=== PATIENT | male | born 1965 | race Two or more races ===

== ENCOUNTER 2016-10-20 08:15 | Inpatient (IN) | payer MEDICARE, MEDICAID ==
[~2016-10-20] VITALS: Ht 172.7 cm; Wt 58.5 kg
[2016-10-20] MEDS ORDERED: AZITHROMYCIN 500 MG in IV D5W 250 ML IV ONE (08:30)
[2016-10-20] MEDS ORDERED: IV NS 0.9% 1,000 ML BAG IV ONE (08:30)
[2016-10-20] MEDS ORDERED: PIPERACILLIN /TAZOBACTAM 3.375 G in IV D5W 50 ML IV ONE (08:30)
[2016-10-20] MEDS ORDERED: IV NS 0.9% 1,000 ML ONE (08:40)
[2016-10-20] MEDS ORDERED: IV SET PRIMARY PUMP SET 1 EA INFUS.SET MC ONE ×2 (08:41→16:52)
[2016-10-20 08:43] LABS: BASOPHILS % (AUTO) 0.2 % (0.0-2.0); DIFF TOTAL % 100 %; EOSINOPHILS # (AUTO) 0.1 /CMM (0.0-0.7); EOSINOPHILS % (AUTO) 0.5 % (0.0-6.0); HEMATOCRIT 33 % (39-51); HEMOGLOBIN 10.5 g/dL (13.5-17.5); LYMPHOCYTES # (AUTO) 0.8 /CMM (0.8-4.8); LYMPHOCYTES % (AUTO) 7.9 % (20.0-44.0); MEAN CORPUSCULAR HEMOGLOBIN 24 PG (26.0-33.0); MEAN CORPUSCULAR HGB CONC 32 g/dl (31.0-36.0); MEAN CORPUSCULAR VOLUME 75 fL (80-96); MONOCYTES # (AUTO) 0.6 /CMM (0.1-1.30); MONOCYTES % (AUTO) 5.9 % (2.0-12.0); NEUTROPHILS # (AUTO) 8.5 /CMM (1.8-8.9); NEUTROPHILS % (AUTO) 85.5 % (43.0-81.0); PLATELET COUNT (AUTO) 159 /CMM (150-450); RED BLOOD CELL COUNT(AUTO) 4.41 MIL/uL (4.5-6.0); WHITE BLOOD COUNT (AUTO) 9.9 K/uL (4.3-11.0)
[2016-10-20 08:54] LABS: CALCIUM, SERUM 8.5 mg/dL (8.5-10.1); CREATININE 0.5 mg/dL (0.6-1.3)
[2016-10-20 09:01] LABS: LACTIC ACID 0.6 mmol/L (0.4-2.0)
[2016-10-20] MEDS ORDERED: VANCOMYCIN 1 GM in IV D5W 250 ML IV ONE (09:30)
[2016-10-20] MEDS ORDERED: DIGO125T GT (10:36)
[2016-10-20] MEDS ORDERED: OMEP20CA10 PO (10:36)
[2016-10-20] MEDS ORDERED: BETH25TA GT (10:36)
[2016-10-20] MEDS ORDERED: AMIO200T2 GT (10:36)
[2016-10-20] MEDS ORDERED: LEVO500T90 GT (10:36)
[2016-10-20] MEDS ORDERED: CHLO15MO2 MM (10:36)
[2016-10-20] MEDS ORDERED: BENZ0.5T3 GT (10:36)
[2016-10-20] MEDS ORDERED: CARB1TAB21 GT (10:36)
[2016-10-20] MEDS ORDERED: LEVO112T2 GT (10:36)
[2016-10-20] MEDS ORDERED: METO5SOL GT (10:36)
[2016-10-20] MEDS ORDERED: VALP250S14 GT (10:36)
[2016-10-20] MEDS ORDERED: ALBU0.633 IH (10:36)
[2016-10-20] MEDS ORDERED: IV NS 0.9% 1,000 ML IV PRN (15:54)
[2016-10-20] MEDS ORDERED: ONDANSETRON HCL/PF 4 MG/2 ML VIAL IVP PRN (16:00)
[2016-10-20] MEDS ORDERED: ZOLPIDEM TARTRATE 5 MG TABLET GT PRN (16:00)
[2016-10-20] MEDS ORDERED: MAGNESIUM HYDROXIDE 30 ML UDC PO PRN (16:00)
[2016-10-20] MEDS ORDERED: Z GUARD REMEDY 2 OZ OINT TP PRN (16:00)
[2016-10-20] MEDS ORDERED: FEE PK DOSING 1 MIN EA MC ONE (16:39)
[2016-10-20 16:49] VITALS: BP 138/77
[2016-10-20] MEDS: CARBIDOPA/LEVODOPA 25/100 MG 1 UDTAB GT SCH (16:56)
[2016-10-20] MEDS: BENZTROPINE MESYLATE (1 MG) 1 MG TABLET GT SCH (16:56)
[2016-10-20 17:00] VITALS: BP 112/64
[2016-10-20] MEDS ORDERED: SECONDARY IV SET 1 EA INFUS.SET MC ONE ×2 (17:00→21:59)
[2016-10-20] MEDS: METOCLOPRAMIDE HCL 10 MG/10 ML UDC GT SCH ×2 (17:06→23:48)
[2016-10-20] MEDS: BETHANECHOL CHLORIDE (25 MG) 25 MG TABLET GT SCH (17:07)
[2016-10-20] MEDS: PIPERACILLIN /TAZOBACTAM 3.375 G in IV D5W 50 ML IV SCH ×2 (17:48→23:48)
[2016-10-20 18:00] VITALS: BP 111/65
[2016-10-20] MEDS ORDERED: ALBUTEROL HALF STRENGTH 1.25 MG/3 ML VIAL.NEB NEB PRN (19:30)
[2016-10-20 20:00] VITALS: BP 129/69
[2016-10-20] MEDS ORDERED: CHLORHEXIDINE GLUCONATE 15 ML UDC MM SCH (21:00)
[2016-10-20] MEDS: VALPROIC ACID 250 MG/5 ML UDC GT SCH (21:55)
[2016-10-20] MEDS: VANCOMYCIN 0.75 GM in IV D5W 250 ML IV SCH (21:55)
[2016-10-20] MEDS: ENOXAPARIN SODIUM 40 MG/0.4 ML DISP.SYRIN SQ SCH (21:57)
[2016-10-20] MEDS: FIBERSOURCE HN 1,000 ML BOTTLE GT PRN (22:26)
[2016-10-21] MEDS: VANCOMYCIN 0.75 GM in IV D5W 250 ML IV SCH ×3 (03:50→21:44)
[2016-10-21] MEDS ORDERED: IV NS 0.9% 1,000 ML ONE (03:55)
[2016-10-21 04:00] VITALS: BP 100/46
[2016-10-21] MEDS: METOCLOPRAMIDE HCL 10 MG/10 ML UDC GT SCH ×3 (05:32→17:29)
[2016-10-21] MEDS: PIPERACILLIN /TAZOBACTAM 3.375 G in IV D5W 50 ML IV SCH ×3 (05:33→17:29)
[2016-10-21 08:00] VITALS: BP 127/28
[2016-10-21] MEDS ORDERED: HYDROGEL DRESSING 90 GM TUBE TP PRN (09:00)
[2016-10-21] MEDS ORDERED: Medication Not On Formulary EA (Omeprazole 20 MG) PO SCH (09:00)
[2016-10-21 09:04] LABS: BASOPHILS % (AUTO) 0.4 % (0.0-2.0); DIFF TOTAL % 100 %; EOSINOPHILS # (AUTO) 0.1 /CMM (0.0-0.7); EOSINOPHILS % (AUTO) 1.3 % (0.0-6.0); HEMATOCRIT 27 % (39-51); HEMOGLOBIN 8.5 g/dL (13.5-17.5); LYMPHOCYTES # (AUTO) 0.9 /CMM (0.8-4.8); LYMPHOCYTES % (AUTO) 11.7 % (20.0-44.0); MEAN CORPUSCULAR HEMOGLOBIN 25 PG (26.0-33.0); MEAN CORPUSCULAR HGB CONC 31 g/dl (31.0-36.0); MEAN CORPUSCULAR VOLUME 81 fL (80-96); MONOCYTES # (AUTO) 0.2 /CMM (0.1-1.30); MONOCYTES % (AUTO) 2.9 % (2.0-12.0); NEUTROPHILS # (AUTO) 6.5 /CMM (1.8-8.9); NEUTROPHILS % (AUTO) 83.7 % (43.0-81.0); PLATELET COUNT (AUTO) 183 /CMM (150-450); RED BLOOD CELL COUNT(AUTO) 3.35 MIL/uL (4.5-6.0); WHITE BLOOD COUNT (AUTO) 7.8 K/uL (4.3-11.0)
[2016-10-21 09:21] LABS: CALCIUM, SERUM 7.8 mg/dL (8.5-10.1); CREATININE 0.5 mg/dL (0.6-1.3); PHOSPHORUS 4.1 mg/dL (2.5-4.9); POTASSIUM 3.3 mmol/L (3.5-5.1)
[2016-10-21] MEDS: PANTOPRAZOLE 40 MG/PACK PACK GT SCH (09:23)
[2016-10-21] MEDS: BETHANECHOL CHLORIDE (25 MG) 25 MG TABLET GT SCH ×3 (09:23→16:37)
[2016-10-21] MEDS: VALPROIC ACID 250 MG/5 ML UDC GT SCH ×2 (09:23→21:45)
[2016-10-21] MEDS: AMIODARONE HCL 200 MG TABLET GT SCH (09:24)
[2016-10-21] MEDS: BENZTROPINE MESYLATE (1 MG) 1 MG TABLET GT SCH ×3 (09:25→16:38)
[2016-10-21] MEDS: CARBIDOPA/LEVODOPA 25/100 MG 1 UDTAB GT SCH ×3 (09:25→16:37)
[2016-10-21] MEDS: HYDROGEL DRESSING 90 GM TUBE TP SCH (10:50)
[2016-10-21] MEDS: LEVOTHYROXINE SODIUM 112 MCG TABLET GT SCH (10:51)
[2016-10-21 12:00] VITALS: BP 114/41
[2016-10-21] MEDS: DIGOXIN 0.125 MG TABLET GT SCH (12:27)
[2016-10-21] MEDS ORDERED: Potassium Chloride 20 MEQ in IV D5W 1,000 ML IV ONE (13:30)
[2016-10-21] MEDS ORDERED: IV D5W 1,000 ML IV ONE (13:30)
[2016-10-21] MEDS ORDERED: IV SET PRIMARY PUMP SET 1 EA INFUS.SET MC ONE (14:16)
[2016-10-21] MEDS ORDERED: SECONDARY IV SET 1 EA INFUS.SET MC ONE (14:16)
[2016-10-21] MEDS: Magnesium 1GM/D5W 100ML PREMIX 100 ML IV SCH ×2 (14:22→16:36)
[2016-10-21 16:00] VITALS: BP 129/55
[2016-10-21] MEDS: LACTOBACILLUS RHAMNOSUS GG 1 EACH CAP.SPRINK GT SCH (16:38)
[2016-10-21 20:00] VITALS: BP 123/59
[2016-10-21] MEDS: ENOXAPARIN SODIUM 40 MG/0.4 ML DISP.SYRIN SQ SCH (21:46)
[2016-10-22] VITALS (7 sets, daily range): BP systolic 124–170; BP diastolic 54–90
[2016-10-22] MEDS: PIPERACILLIN /TAZOBACTAM 3.375 G in IV D5W 50 ML IV SCH ×5 (00:20→23:36)
[2016-10-22] MEDS: METOCLOPRAMIDE HCL 10 MG/10 ML UDC GT SCH ×5 (00:21→23:36)
[2016-10-22] MEDS: VANCOMYCIN 0.75 GM in IV D5W 250 ML IV SCH ×3 (05:32→21:26)
[2016-10-22 07:56] LABS: CALCIUM, SERUM 8.5 mg/dL (8.5-10.1); CREATININE 0.5 mg/dL (0.6-1.3); POTASSIUM 3.5 mmol/L (3.5-5.1)
[2016-10-22] MEDS: HYDROGEL DRESSING 90 GM TUBE TP SCH (09:00)
[2016-10-22] MEDS: LACTOBACILLUS RHAMNOSUS GG 1 EACH CAP.SPRINK GT SCH ×2 (09:05→17:26)
[2016-10-22] MEDS: VALPROIC ACID 250 MG/5 ML UDC GT SCH ×2 (09:05→21:27)
[2016-10-22] MEDS: AMIODARONE HCL 200 MG TABLET GT SCH (09:07)
[2016-10-22] MEDS: CARBIDOPA/LEVODOPA 25/100 MG 1 UDTAB GT SCH ×3 (09:07→17:26)
[2016-10-22] MEDS: BENZTROPINE MESYLATE (1 MG) 1 MG TABLET GT SCH ×3 (09:07→17:26)
[2016-10-22] MEDS: LEVOTHYROXINE SODIUM 112 MCG TABLET GT SCH (09:08)
[2016-10-22] MEDS: PANTOPRAZOLE 40 MG/PACK PACK GT SCH (09:08)
[2016-10-22] MEDS: BETHANECHOL CHLORIDE (25 MG) 25 MG TABLET GT SCH ×3 (09:16→17:30)
[2016-10-22] MEDS: DIGOXIN 0.125 MG TABLET GT SCH (12:45)
[2016-10-22] MEDS ORDERED: IV NS 0.9% 250 ML IV ONE (14:46)
[2016-10-22] MEDS ORDERED: IV NS 0.9% 250 ML BAG IV SCH ×2 (15:00→15:30)
[2016-10-22] MEDS ORDERED: IV NS 0.9% 250 ML IV PRN (15:30)
[2016-10-22] MEDS: FIBERSOURCE HN 1,000 ML BOTTLE GT PRN (15:35)
[2016-10-22] MEDS: ENOXAPARIN SODIUM 40 MG/0.4 ML DISP.SYRIN SQ SCH (21:37)
[2016-10-23] VITALS (7 sets, daily range): BP systolic 115–150; BP diastolic 53–91
[2016-10-23] MEDS: VANCOMYCIN 0.75 GM in IV D5W 250 ML IV SCH ×3 (04:47→20:24)
[2016-10-23] MEDS: PIPERACILLIN /TAZOBACTAM 3.375 G in IV D5W 50 ML IV SCH ×4 (05:43→23:34)
[2016-10-23] MEDS: METOCLOPRAMIDE HCL 10 MG/10 ML UDC GT SCH ×4 (05:43→23:34)
[2016-10-23] MEDS: LACTOBACILLUS RHAMNOSUS GG 1 EACH CAP.SPRINK GT SCH ×2 (08:03→17:49)
[2016-10-23] MEDS: PANTOPRAZOLE 40 MG/PACK PACK GT SCH (08:03)
[2016-10-23] MEDS: AMIODARONE HCL 200 MG TABLET GT SCH (08:03)
[2016-10-23] MEDS: CARBIDOPA/LEVODOPA 25/100 MG 1 UDTAB GT SCH ×3 (08:03→17:47)
[2016-10-23] MEDS: VALPROIC ACID 250 MG/5 ML UDC GT SCH ×2 (08:03→20:24)
[2016-10-23] MEDS: BENZTROPINE MESYLATE (1 MG) 1 MG TABLET GT SCH ×3 (08:04→17:48)
[2016-10-23] MEDS: BETHANECHOL CHLORIDE (25 MG) 25 MG TABLET GT SCH ×3 (08:04→18:05)
[2016-10-23] MEDS: HYDROGEL DRESSING 90 GM TUBE TP SCH (08:10)
[2016-10-23] MEDS: LEVOTHYROXINE SODIUM 112 MCG TABLET GT SCH (10:20)
[2016-10-23 10:26] LABS: CALCIUM, SERUM 8.5 mg/dL (8.5-10.1); CREATININE 0.5 mg/dL (0.6-1.3); POTASSIUM 3.6 mmol/L (3.5-5.1)
[2016-10-23] MEDS: DIGOXIN 0.125 MG TABLET GT SCH (12:26)
[2016-10-23] MEDS: ENOXAPARIN SODIUM 40 MG/0.4 ML DISP.SYRIN SQ SCH (20:27)
[2016-10-24] VITALS (8 sets, daily range): BP systolic 110–133; BP diastolic 60–68
[2016-10-24] MEDS: VANCOMYCIN 0.75 GM in IV D5W 250 ML IV SCH ×3 (03:47→23:55)
[2016-10-24] MEDS: PIPERACILLIN /TAZOBACTAM 3.375 G in IV D5W 50 ML IV SCH ×3 (05:47→18:36)
[2016-10-24] MEDS: METOCLOPRAMIDE HCL 10 MG/10 ML UDC GT SCH ×3 (05:47→18:36)
[2016-10-24] MEDS: FIBERSOURCE HN 1,000 ML BOTTLE GT PRN (05:47)
[2016-10-24] MEDS: BENZTROPINE MESYLATE (1 MG) 1 MG TABLET GT SCH ×3 (08:54→18:36)
[2016-10-24] MEDS: PANTOPRAZOLE 40 MG/PACK PACK GT SCH (08:54)
[2016-10-24] MEDS: VALPROIC ACID 250 MG/5 ML UDC GT SCH ×2 (08:54→23:58)
[2016-10-24] MEDS: LEVOTHYROXINE SODIUM 112 MCG TABLET GT SCH (08:54)
[2016-10-24] MEDS: CARBIDOPA/LEVODOPA 25/100 MG 1 UDTAB GT SCH ×3 (08:55→18:37)
[2016-10-24] MEDS: LACTOBACILLUS RHAMNOSUS GG 1 EACH CAP.SPRINK GT SCH ×2 (08:55→18:36)
[2016-10-24] MEDS: AMIODARONE HCL 200 MG TABLET GT SCH (08:55)
[2016-10-24] MEDS: BETHANECHOL CHLORIDE (25 MG) 25 MG TABLET GT SCH ×3 (08:55→18:37)
[2016-10-24] MEDS: HYDROGEL DRESSING 90 GM TUBE TP SCH (08:56)
[2016-10-24 09:35] LABS: BASOPHILS % (AUTO) 0.4 % (0.0-2.0); DIFF TOTAL % 100 %; EOSINOPHILS # (AUTO) 0.1 /CMM (0.0-0.7); EOSINOPHILS % (AUTO) 0.8 % (0.0-6.0); HEMATOCRIT 36 % (39-51); HEMOGLOBIN 11.2 g/dL (13.5-17.5); LYMPHOCYTES # (AUTO) 0.6 /CMM (0.8-4.8); LYMPHOCYTES % (AUTO) 7.8 % (20.0-44.0); MEAN CORPUSCULAR HEMOGLOBIN 24 PG (26.0-33.0); MEAN CORPUSCULAR HGB CONC 32 g/dl (31.0-36.0); MEAN CORPUSCULAR VOLUME 75 fL (80-96); MONOCYTES # (AUTO) 0.6 /CMM (0.1-1.30); MONOCYTES % (AUTO) 7.7 % (2.0-12.0); NEUTROPHILS # (AUTO) 6.2 /CMM (1.8-8.9); NEUTROPHILS % (AUTO) 83.3 % (43.0-81.0); PLATELET COUNT (AUTO) 167 /CMM (150-450); RED BLOOD CELL COUNT(AUTO) 4.72 MIL/uL (4.5-6.0); WHITE BLOOD COUNT (AUTO) 7.4 K/uL (4.3-11.0)
[2016-10-24 09:47] LABS: ALBUMIN 2.2 g/dL (3.4-5.0); BILIRUBIN,TOTAL 0.3 mg/dL (0.2-1.0); CALCIUM, SERUM 8.7 mg/dL (8.5-10.1); CREATININE 0.5 mg/dL (0.6-1.3); PHOSPHORUS 3.1 mg/dL (2.5-4.9); POTASSIUM 3.5 mmol/L (3.5-5.1)
[2016-10-24 10:29] LABS: ABG BASE EXCESS 12.6 mmol/L; ABG HCO3 38.2 mmol/L; ABG PCO2 54.8 mmHg (35.0-45.0); ABG PH 7.461 (7.350-7.450); ABG PO2 103.3 mmHg (75.0-100.0); ABG TOTAL HEMOGLOBIN 10.7 G/dL (13.5-18.0); AaDO2 118.9 mmHg; O2Hb 95.4 % (94.0-97.0)
[2016-10-24] MEDS: DIGOXIN 0.125 MG TABLET GT SCH (13:38)
[2016-10-24] MEDS ORDERED: SECONDARY IV SET 1 EA INFUS.SET MC ONE (13:46)
[2016-10-24] MEDS: Magnesium 1GM/D5W 100ML PREMIX 100 ML IV SCH ×2 (15:01→16:04)
[2016-10-24] MEDS: ENOXAPARIN SODIUM 40 MG/0.4 ML DISP.SYRIN SQ SCH (21:00)
[2016-10-25] VITALS (7 sets, daily range): BP systolic 115–140; BP diastolic 55–62
[2016-10-25] MEDS: METOCLOPRAMIDE HCL 10 MG/10 ML UDC GT SCH ×5 (01:29→23:25)
[2016-10-25] MEDS: PIPERACILLIN /TAZOBACTAM 3.375 G in IV D5W 50 ML IV SCH ×5 (01:29→23:24)
[2016-10-25] MEDS: VANCOMYCIN 0.75 GM in IV D5W 250 ML IV SCH ×3 (04:53→21:10)
[2016-10-25 06:59] LABS: BASOPHILS % (AUTO) 0.2 % (0.0-2.0); DIFF TOTAL % 100 %; EOSINOPHILS # (AUTO) 0.1 /CMM (0.0-0.7); EOSINOPHILS % (AUTO) 2.2 % (0.0-6.0); HEMATOCRIT 30 % (39-51); HEMOGLOBIN 9.4 g/dL (13.5-17.5); LYMPHOCYTES # (AUTO) 0.8 /CMM (0.8-4.8); LYMPHOCYTES % (AUTO) 11.2 % (20.0-44.0); MEAN CORPUSCULAR HEMOGLOBIN 24 PG (26.0-33.0); MEAN CORPUSCULAR HGB CONC 31 g/dl (31.0-36.0); MEAN CORPUSCULAR VOLUME 76 fL (80-96); MONOCYTES # (AUTO) 0.6 /CMM (0.1-1.30); MONOCYTES % (AUTO) 8.4 % (2.0-12.0); NEUTROPHILS # (AUTO) 5.3 /CMM (1.8-8.9); PLATELET COUNT (AUTO) 133 /CMM (150-450); RED BLOOD CELL COUNT(AUTO) 3.94 MIL/uL (4.5-6.0); WHITE BLOOD COUNT (AUTO) 6.8 K/uL (4.3-11.0)
[2016-10-25] MEDS ORDERED: SILVER NITRATE APPLICATOR 1 EA BOX TP ONE ×2 (07:30)
[2016-10-25] MEDS ORDERED: LIDOCAINE 1%-EPI 1:100,000 20 ML VIAL IJ ONE (07:30)
[2016-10-25 07:31] LABS: CREATININE 0.5 mg/dL (0.6-1.3); POTASSIUM 3.3 mmol/L (3.5-5.1)
[2016-10-25] MEDS: CARBIDOPA/LEVODOPA 25/100 MG 1 UDTAB GT SCH ×3 (08:16→17:41)
[2016-10-25] MEDS: PANTOPRAZOLE 40 MG/PACK PACK GT SCH (08:16)
[2016-10-25] MEDS: VALPROIC ACID 250 MG/5 ML UDC GT SCH ×2 (08:16→21:35)
[2016-10-25] MEDS: LACTOBACILLUS RHAMNOSUS GG 1 EACH CAP.SPRINK GT SCH ×2 (08:16→17:41)
[2016-10-25] MEDS: BETHANECHOL CHLORIDE (25 MG) 25 MG TABLET GT SCH ×3 (08:16→17:41)
[2016-10-25] MEDS: BENZTROPINE MESYLATE (1 MG) 1 MG TABLET GT SCH ×3 (08:16→17:41)
[2016-10-25] MEDS: LEVOTHYROXINE SODIUM 112 MCG TABLET GT SCH (08:16)
[2016-10-25] MEDS: AMIODARONE HCL 200 MG TABLET GT SCH (08:17)
[2016-10-25] MEDS: HYDROGEL DRESSING 90 GM TUBE TP SCH (08:18)
[2016-10-25] MEDS: DIGOXIN 0.125 MG TABLET GT SCH (12:35)
[2016-10-25] MEDS ORDERED: POTASSIUM CHLORIDE 20 MEQ POWDER PACKET PO ONE (14:00)
[2016-10-25] MEDS ORDERED: POTASSIUM CHLORIDE 20 MEQ TAB.PRT.SR PO ONE ×2 (14:30)
[2016-10-25] MEDS ORDERED: POTASSIUM CHLORIDE 20 MEQ POWDER PACKET GT ONE (15:00)
[2016-10-25] MEDS: FIBERSOURCE HN 1,000 ML BOTTLE GT PRN (19:03)
[2016-10-25] MEDS: ENOXAPARIN SODIUM 40 MG/0.4 ML DISP.SYRIN SQ SCH (21:36)
[2016-10-26] VITALS: BP 121/64
[2016-10-26 04:00] VITALS: BP 124/78
[2016-10-26] MEDS: VANCOMYCIN 0.75 GM in IV D5W 250 ML IV SCH ×2 (05:28→11:33)
[2016-10-26] MEDS: METOCLOPRAMIDE HCL 10 MG/10 ML UDC GT SCH ×3 (05:28→17:18)
[2016-10-26] MEDS: PIPERACILLIN /TAZOBACTAM 3.375 G in IV D5W 50 ML IV SCH ×3 (05:29→17:17)
[2016-10-26 07:45] LABS: CALCIUM, SERUM 8.2 mg/dL (8.5-10.1); CREATININE 0.5 mg/dL (0.6-1.3); DIFF TOTAL % 100 %; EOSINOPHILS # (AUTO) 0.1 /CMM (0.0-0.7); EOSINOPHILS % (AUTO) 1.5 % (0.0-6.0); HEMATOCRIT 31 % (39-51); HEMOGLOBIN 9.8 g/dL (13.5-17.5); LYMPHOCYTES # (AUTO) 1.3 /CMM (0.8-4.8); LYMPHOCYTES % (AUTO) 13.1 % (20.0-44.0); MEAN CORPUSCULAR HEMOGLOBIN 24 PG (26.0-33.0); MEAN CORPUSCULAR HGB CONC 32 g/dl (31.0-36.0); MEAN CORPUSCULAR VOLUME 75 fL (80-96); MONOCYTES # (AUTO) 0.9 /CMM (0.1-1.30); MONOCYTES % (AUTO) 8.9 % (2.0-12.0); NEUTROPHILS # (AUTO) 7.4 /CMM (1.8-8.9); NEUTROPHILS % (AUTO) 76.5 % (43.0-81.0); PHOSPHORUS 2.7 mg/dL (2.5-4.9); PLATELET COUNT (AUTO) 129 /CMM (150-450); POTASSIUM 3.7 mmol/L (3.5-5.1); RED BLOOD CELL COUNT(AUTO) 4.12 MIL/uL (4.5-6.0); WHITE BLOOD COUNT (AUTO) 9.6 K/uL (4.3-11.0)
[2016-10-26 08:00] VITALS: BP 113/54
[2016-10-26] MEDS: PANTOPRAZOLE 40 MG/PACK PACK GT SCH (08:23)
[2016-10-26] MEDS: LEVOTHYROXINE SODIUM 112 MCG TABLET GT SCH (08:23)
[2016-10-26] MEDS: BETHANECHOL CHLORIDE (25 MG) 25 MG TABLET GT SCH ×3 (08:24→17:18)
[2016-10-26] MEDS: CARBIDOPA/LEVODOPA 25/100 MG 1 UDTAB GT SCH ×3 (08:24→17:18)
[2016-10-26] MEDS: BENZTROPINE MESYLATE (1 MG) 1 MG TABLET GT SCH ×3 (08:24→17:19)
[2016-10-26] MEDS: LACTOBACILLUS RHAMNOSUS GG 1 EACH CAP.SPRINK GT SCH ×2 (08:24→17:18)
[2016-10-26] MEDS: VALPROIC ACID 250 MG/5 ML UDC GT SCH ×2 (08:24→20:21)
[2016-10-26] MEDS: HYDROGEL DRESSING 90 GM TUBE TP SCH (08:25)
[2016-10-26] MEDS: AMIODARONE HCL 200 MG TABLET GT SCH (08:26)
[2016-10-26 12:00] VITALS: BP 128/55
[2016-10-26] MEDS: DIGOXIN 0.125 MG TABLET GT SCH (12:08)
[2016-10-26] MEDS: Magnesium 1GM/D5W 100ML PREMIX 100 ML IV SCH ×2 (12:09→13:08)
[2016-10-26 16:00] VITALS: BP 108/56
[2016-10-26] MEDS ORDERED: IV SET PRIMARY PUMP SET 1 EA INFUS.SET MC ONE (18:00)
[2016-10-26 20:00] VITALS: BP 120/49
[2016-10-26] MEDS: ENOXAPARIN SODIUM 40 MG/0.4 ML DISP.SYRIN SQ SCH (20:23)
[2016-10-27] VITALS: BP_SYST 116; BP_SYST 119; BP_DIAS 56; BP_DIAS 69
[2016-10-27] MEDS: METOCLOPRAMIDE HCL 10 MG/10 ML UDC GT SCH ×4 (00:16→17:49)
[2016-10-27] MEDS: PIPERACILLIN /TAZOBACTAM 3.375 G in IV D5W 50 ML IV SCH ×4 (00:17→17:49)
[2016-10-27 04:00] VITALS: BP 121/59
[2016-10-27] MEDS: FIBERSOURCE HN 1,000 ML BOTTLE GT PRN (05:09)
[2016-10-27 06:54] LABS: BASOPHILS % (AUTO) 0.1 % (0.0-2.0); DIFF TOTAL % 100 %; HEMATOCRIT 30 % (39-51); HEMOGLOBIN 9.6 g/dL (13.5-17.5); LYMPHOCYTES # (AUTO) 0.8 /CMM (0.8-4.8); LYMPHOCYTES % (AUTO) 9.9 % (20.0-44.0); MEAN CORPUSCULAR HEMOGLOBIN 24 PG (26.0-33.0); MEAN CORPUSCULAR HGB CONC 32 g/dl (31.0-36.0); MEAN CORPUSCULAR VOLUME 76 fL (80-96); MONOCYTES # (AUTO) 0.7 /CMM (0.1-1.30); MONOCYTES % (AUTO) 8.5 % (2.0-12.0); NEUTROPHILS # (AUTO) 6.6 /CMM (1.8-8.9); NEUTROPHILS % (AUTO) 81.5 % (43.0-81.0); PLATELET COUNT (AUTO) 134 /CMM (150-450); RED BLOOD CELL COUNT(AUTO) 4.01 MIL/uL (4.5-6.0); WHITE BLOOD COUNT (AUTO) 8.1 K/uL (4.3-11.0)
[2016-10-27 07:47] LABS: CALCIUM, SERUM 8.2 mg/dL (8.5-10.1); CREATININE 0.6 mg/dL (0.6-1.3); PHOSPHORUS 2.7 mg/dL (2.5-4.9); POTASSIUM 3.9 mmol/L (3.5-5.1)
[2016-10-27 08:00] VITALS: BP 120/49
[2016-10-27] MEDS: VALPROIC ACID 250 MG/5 ML UDC GT SCH ×2 (09:00→21:27)
[2016-10-27] MEDS: AMIODARONE HCL 200 MG TABLET GT SCH (09:00)
[2016-10-27] MEDS: LEVOTHYROXINE SODIUM 112 MCG TABLET GT SCH (09:00)
[2016-10-27] MEDS: LACTOBACILLUS RHAMNOSUS GG 1 EACH CAP.SPRINK GT SCH ×2 (09:01→17:49)
[2016-10-27] MEDS: BENZTROPINE MESYLATE (1 MG) 1 MG TABLET GT SCH ×3 (09:01→17:49)
[2016-10-27] MEDS: PANTOPRAZOLE 40 MG/PACK PACK GT SCH (09:02)
[2016-10-27] MEDS: BETHANECHOL CHLORIDE (25 MG) 25 MG TABLET GT SCH ×3 (09:02→17:49)
[2016-10-27] MEDS: CARBIDOPA/LEVODOPA 25/100 MG 1 UDTAB GT SCH ×3 (09:02→17:49)
[2016-10-27] MEDS: HYDROGEL DRESSING 90 GM TUBE TP SCH (09:03)
[2016-10-27 12:00] VITALS: BP 118/48
[2016-10-27] MEDS: DIGOXIN 0.125 MG TABLET GT SCH (12:22)
[2016-10-27 16:00] VITALS: BP 121/79
[2016-10-27] MEDS ORDERED: FIBERSOURCE HN 1,000 ML BOTTLE GT PRN (16:31)
[2016-10-27] MEDS ORDERED: IV NS 0.9% 250 ML IV ONE (17:44)
[2016-10-27 20:00] VITALS: BP 120/70
[2016-10-27] MEDS: ENOXAPARIN SODIUM 40 MG/0.4 ML DISP.SYRIN SQ SCH (21:30)
[2016-10-28] VITALS: BP 119/63
[2016-10-28] MEDS: PIPERACILLIN /TAZOBACTAM 3.375 G in IV D5W 50 ML IV SCH ×4 (00:15→17:27)
[2016-10-28] MEDS: METOCLOPRAMIDE HCL 10 MG/10 ML UDC GT SCH ×4 (01:02→17:27)
[2016-10-28 04:00] VITALS: BP 117/62
[2016-10-28] MEDS: LEVOTHYROXINE SODIUM 112 MCG TABLET GT SCH ×2 (07:18→08:34)
[2016-10-28] MEDS: PANTOPRAZOLE 40 MG/PACK PACK GT SCH ×2 (07:19→08:34)
[2016-10-28 08:00] VITALS: BP 114/57
[2016-10-28] MEDS: BENZTROPINE MESYLATE (1 MG) 1 MG TABLET GT SCH ×3 (08:33→17:28)
[2016-10-28] MEDS: BETHANECHOL CHLORIDE (25 MG) 25 MG TABLET GT SCH ×3 (08:33→17:28)
[2016-10-28] MEDS: LACTOBACILLUS RHAMNOSUS GG 1 EACH CAP.SPRINK GT SCH ×2 (08:33→17:28)
[2016-10-28] MEDS: VALPROIC ACID 250 MG/5 ML UDC GT SCH (08:33)
[2016-10-28] MEDS: AMIODARONE HCL 200 MG TABLET GT SCH (08:34)
[2016-10-28] MEDS: CARBIDOPA/LEVODOPA 25/100 MG 1 UDTAB GT SCH ×3 (08:35→17:28)
[2016-10-28] MEDS: HYDROGEL DRESSING 90 GM TUBE TP SCH (08:35)
[2016-10-28] MEDS ORDERED: ASCORBIC ACID 500 MG TABLET GT SCH (09:00)
[2016-10-28] MEDS ORDERED: MULTIVITAMINS,THERAPEUTIC 1 UDTAB TABLET GT SCH (09:00)
[2016-10-28 12:00] VITALS: BP 111/51
[2016-10-28] MEDS: DIGOXIN 0.125 MG TABLET GT SCH (12:44)
[2016-10-28 16:00] VITALS: BP 102/54
[2016-10-28 16:53] LABS: BASOPHILS % (AUTO) 0.3 % (0.0-2.0); DIFF TOTAL % 100 %; EOSINOPHILS # (AUTO) 0.1 /CMM (0.0-0.7); HEMATOCRIT 29 % (39-51); HEMOGLOBIN 9.1 g/dL (13.5-17.5); LYMPHOCYTES % (AUTO) 14.3 % (20.0-44.0); MEAN CORPUSCULAR HEMOGLOBIN 24 PG (26.0-33.0); MEAN CORPUSCULAR HGB CONC 32 g/dl (31.0-36.0); MEAN CORPUSCULAR VOLUME 75 fL (80-96); MONOCYTES # (AUTO) 0.4 /CMM (0.1-1.30); MONOCYTES % (AUTO) 5.8 % (2.0-12.0); NEUTROPHILS # (AUTO) 5.2 /CMM (1.8-8.9); NEUTROPHILS % (AUTO) 77.6 % (43.0-81.0); PLATELET COUNT (AUTO) 120 /CMM (150-450); RED BLOOD CELL COUNT(AUTO) 3.82 MIL/uL (4.5-6.0); WHITE BLOOD COUNT (AUTO) 6.8 K/uL (4.3-11.0)
[2016-10-28 17:05] LABS: CALCIUM, SERUM 8.1 mg/dL (8.5-10.1); CREATININE 0.5 mg/dL (0.6-1.3); PHOSPHORUS 2.3 mg/dL (2.5-4.9); POTASSIUM 4.1 mmol/L (3.5-5.1)
[2016-10-28] MEDS ORDERED: NEUTRA PHOS 1 POWD.PACKET GT ONE (19:00)
[2016-10-28] MEDS ORDERED: MAGNESIUM OXIDE 400 MG TABLET GT ONE (19:00)
== END 2016-10-28 20:29 | DRG 853 ==
LOC: ER 08:17 → ICU 15:47 → TELE-TD 19:04 → TELE1 19:57 → MEDSG1 10-28 09:50
PROVIDERS: ADMIT Internal Medicine; ATTEND Internal Medicine
PROC: 05H533Z Insertion of Infusion Device into Right Subclavian Vein, Percutaneous Approach (ICD-10-PCS; 2016-10-22)
PROC: 0JB80ZZ Excision of Abdomen Subcutaneous Tissue and Fascia, Open Approach (ICD-10-PCS; principal; 2016-10-25)
DX: A41.9 Sepsis, unspecified organism (principal); J96.21 Acute and chronic respiratory failure with hypoxia; N17.0 Acute kidney failure with tubular necrosis; R53.2 Functional quadriplegia; G93.40 Encephalopathy, unspecified; J15.6 Pneumonia due to other Gram-negative bacteria; L03.311 Cellulitis of abdominal wall; E44.0 Moderate protein-calorie malnutrition; E87.0 Hyperosmolality and hypernatremia; Z99.11 Dependence on respirator [ventilator] status; D62 Acute posthemorrhagic anemia; R40.3 Persistent vegetative state; Y83.3 Surgical operation with formation of external stoma as the cause of abnormal reaction of the patient, or of later complication, without mention of misadventure at the time of the procedure; E03.9 Hypothyroidism, unspecified; G40.909 Epilepsy, unspecified, not intractable, without status epilepticus; K21.9 Gastro-esophageal reflux disease without esophagitis; I48.91 Unspecified atrial fibrillation; I10 Essential (primary) hypertension; F02.80 Dementia in other diseases classified elsewhere, unspecified severity, without behavioral disturbance, psychotic disturbance, mood disturbance, and anxiety; D50.9 Iron deficiency anemia, unspecified; D69.6 Thrombocytopenia, unspecified; E83.42 Hypomagnesemia; E87.6 Hypokalemia; G20 Parkinson's disease; I48.0 Paroxysmal atrial fibrillation; E88.09 Other disorders of plasma-protein metabolism, not elsewhere classified; Z93.0 Tracheostomy status; F31.9 Bipolar disorder, unspecified; K94.29 Other complications of gastrostomy; B95.7 Other staphylococcus as the cause of diseases classified elsewhere; R65.20 Severe sepsis without septic shock
CPT/HCPCS: 31720; 36415; 36600; 71010-TC; 71250-TC; 80048-TC; 80053-TC; 80202-TC; 82272-TC; 83605-TC; 83735-TC; 84100-TC; 85025-TC; 86140-TC; 87040-TC; 87070-TC; 87081-TC; 87186-TC; 94003-TC; 94640-TC; 94799-TC; A4606; A6248; A6402; A6403; J0456; J1650; J2543; J3370; J3475; J3480; J3490; J7030; J7050; J7060; J7070; J8597; Z7610

== ENCOUNTER 2016-11-02 19:23 | Inpatient (IN) | payer MEDICARE, MEDICAID ==
[~2016-11-02] VITALS: Ht 182.9 cm; Wt 55.8 kg
[~2016-11-02 19:23] MED LIST: ALBU0.633 IH; AMIO200T2 GT; BENZ0.5T3 GT; BETH25TA GT; CARB1TAB21 GT; CHLO15MO2 MM; DIGO125T GT; LEVO112T2 GT; LEVO500T90 GT; METO5SOL GT; OMEP20CA10 PO; VALP250S14 GT
[2016-11-02] MEDS ORDERED: IV NS 0.9% 1,000 ML BAG IV ONE (20:30)
[2016-11-02 20:45] LABS: BASOPHILS % (AUTO) 0.2 % (0.0-2.0); DIFF TOTAL % 100 %; EOSINOPHILS % (AUTO) 0.2 % (0.0-6.0); HEMATOCRIT 38 % (39-51); HEMOGLOBIN 12.1 g/dL (13.5-17.5); LYMPHOCYTES # (AUTO) 0.3 /CMM (0.8-4.8); MEAN CORPUSCULAR HEMOGLOBIN 24 PG (26.0-33.0); MEAN CORPUSCULAR HGB CONC 32 g/dl (31.0-36.0); MEAN CORPUSCULAR VOLUME 76 fL (80-96); MONOCYTES # (AUTO) 0.7 /CMM (0.1-1.30); MONOCYTES % (AUTO) 6.3 % (2.0-12.0); NEUTROPHILS # (AUTO) 9.4 /CMM (1.8-8.9); NEUTROPHILS % (AUTO) 90.3 % (43.0-81.0); PLATELET COUNT (AUTO) 155 /CMM (150-450); RED BLOOD CELL COUNT(AUTO) 5.07 MIL/uL (4.5-6.0); WHITE BLOOD COUNT (AUTO) 10.4 K/uL (4.3-11.0)
[2016-11-02] MEDS ORDERED: IV NS 0.9% 1,000 ML ONE (21:10)
[2016-11-02] MEDS ORDERED: IV SET PRIMARY 1 EA INFUS.SET MC ONE (21:10)
[2016-11-02 21:13] LABS: TROPONIN I < 0.017 ng/mL (0.00-0.056)
[2016-11-02 21:16] LABS: ALANINE AMINOTRANSFERASE 6 U/L (12-78); ALBUMIN 2.5 g/dL (3.4-5.0); ANION GAP 7 (5-14); ASPARTATE AMINOTRANSFERASE 22 U/L (15-37); BILIRUBIN,DIRECT 0.1 mg/dL (0.0-0.2); BILIRUBIN,TOTAL 0.3 mg/dL (0.2-1.0); CALCIUM, SERUM 9.2 mg/dL (8.5-10.1); CHLORIDE 96 mmol/L (98-107); CREATININE 0.6 mg/dL (0.6-1.3); GFR 141 mL/min (>60); GLUCOSE 93 mg/dL (74-106); INDIRECT BILIRUBIN 0.2 mg/dL (0.0-1.1); POTASSIUM 4.2 mmol/L (3.5-5.1); SODIUM SERUM 139 mmol/L (136-145); UREA NITROGEN, BLOOD 18 mg/dL (7-18)
[2016-11-02 21:26] LABS: CARBON DIOXIDE 40 mmol/L (21-32); INR 1.05 (0.87-1.13); PROTHROMBIN TIME 11.3 SECS (9.5-12.7)
[2016-11-02 21:31] LABS: LACTIC ACID 0.8 mmol/L (0.4-2.0)
[2016-11-02] MEDS ORDERED: LEVOFLOXACIN 750 MG /D5W 150ML 150 ML IV ONE ×2 (21:56→22:00)
[2016-11-02] MEDS ORDERED: IV SET PRIMARY PUMP SET 1 EA INFUS.SET MC ONE (21:56)
[2016-11-02 22:50] VITALS: BP 119/71
[2016-11-02 23:16] VITALS: BP 119/71
[2016-11-03] VITALS: BP 116/64
[2016-11-03 01:07] LABS: KETONES,URINE NEGATIVE (NEGATIVE); LEUKOCYTE ESTERASE ,URINE NEGATIVE (NEGATIVE); PH,URINE 6.5 (5.0-8.0)
[2016-11-03 01:08] LABS: ADD UA MICROSCOPIC YES
[2016-11-03 01:16] LABS: RBC,URINE 81-100 /HPF (0-2)
[2016-11-03 01:17] LABS: ADD URINE CULTURE NO
[2016-11-03] MEDS ORDERED: ONDANSETRON HCL/PF 4 MG/2 ML VIAL IVP PRN (01:30)
[2016-11-03] MEDS ORDERED: Z GUARD REMEDY 2 OZ OINT TP PRN (01:30)
[2016-11-03] MEDS ORDERED: MAG HYDROX/AL HYDROX/SIMETH 30 ML UDC PO PRN (01:30)
[2016-11-03] MEDS ORDERED: IV NS 0.9% 1,000 ML IV ONE (01:30)
[2016-11-03] MEDS ORDERED: MAGNESIUM HYDROXIDE 30 ML UDC PO PRN (01:30)
[2016-11-03] MEDS ORDERED: ENOXAPARIN SODIUM 40 MG/0.4 ML DISP.SYRIN SQ SCH (01:30)
[2016-11-03] MEDS ORDERED: HYDROCODONE/APAP 5/325MG 1 EACH TABLET PO PRN (01:30)
[2016-11-03] MEDS ORDERED: IV SET PRIMARY PUMP SET 1 EA INFUS.SET MC ONE (02:15)
[2016-11-03] MEDS ORDERED: ENOXAPARIN SODIUM 40 MG/0.4 ML DISP.SYRIN SQ ONE (02:15)
[2016-11-03] MEDS ORDERED: IV NS 0.9% 1,000 ML ONE (02:15)
[2016-11-03] MEDS ORDERED: FIBERSOURCE HN 1,000 ML BOTTLE GT SCH (02:30)
[2016-11-03] MEDS ORDERED: METOCLOPRAMIDE HCL 10 MG/10 ML UDC ONE (03:28)
[2016-11-03 04:00] VITALS: BP 122/62
[2016-11-03] MEDS ORDERED: METOCLOPRAMIDE HCL 5 MG/5 ML UDC GT SCH (06:00)
[2016-11-03 08:00] VITALS: BP 115/58
[2016-11-03] MEDS ORDERED: VANCOMYCIN 1 GM in IV D5W 250 ML IV ONE (08:30)
[2016-11-03] MEDS ORDERED: FEE PK DOSING 1 MIN EA MC ONE (08:41)
[2016-11-03] MEDS: LEVOTHYROXINE SODIUM 112 MCG TABLET GT SCH (08:46)
[2016-11-03] MEDS: VALPROIC ACID 250 MG/5 ML UDC GT SCH ×2 (08:46→20:53)
[2016-11-03] MEDS: PIPERACILLIN /TAZOBACTAM 3.375 G in IV D5W 50 ML IV SCH ×4 (08:46→23:35)
[2016-11-03] MEDS: AMIODARONE HCL 200 MG TABLET GT SCH (08:48)
[2016-11-03] MEDS: BENZTROPINE MESYLATE (1 MG) 1 MG TABLET GT SCH ×4 (08:48→16:40)
[2016-11-03] MEDS: CARBIDOPA/LEVODOPA 25/100 MG 1 UDTAB GT SCH ×3 (08:49→16:41)
[2016-11-03] MEDS: PANTOPRAZOLE 40 MG/PACK PACK GT SCH (08:49)
[2016-11-03] MEDS: BETHANECHOL CHLORIDE (25 MG) 25 MG TABLET GT SCH ×3 (08:49→16:41)
[2016-11-03] MEDS ORDERED: SECONDARY IV SET 1 EA INFUS.SET MC ONE (08:53)
[2016-11-03] MEDS ORDERED: CHLORHEXIDINE GLUCONATE 15 ML UDC MM SCH ×2 (09:00)
[2016-11-03] MEDS: HYDROGEL DRESSING 90 GM TUBE TP SCH (10:13)
[2016-11-03] MEDS: METOCLOPRAMIDE HCL 10 MG/10 ML UDC GT SCH ×3 (10:14→20:53)
[2016-11-03 11:15] LABS: CALCIUM, SERUM 8.1 mg/dL (8.5-10.1); CREATININE 0.5 mg/dL (0.6-1.3); POTASSIUM 3.9 mmol/L (3.5-5.1)
[2016-11-03 11:21] LABS: DIFF TOTAL % 100 %; EOSINOPHILS % (AUTO) 0.5 % (0.0-6.0); HEMATOCRIT 27 % (39-51); HEMOGLOBIN 8.4 g/dL (13.5-17.5); LYMPHOCYTES # (AUTO) 0.6 /CMM (0.8-4.8); LYMPHOCYTES % (AUTO) 9.5 % (20.0-44.0); MEAN CORPUSCULAR HEMOGLOBIN 23 PG (26.0-33.0); MEAN CORPUSCULAR HGB CONC 31 g/dl (31.0-36.0); MEAN CORPUSCULAR VOLUME 76 fL (80-96); MONOCYTES # (AUTO) 0.4 /CMM (0.1-1.30); MONOCYTES % (AUTO) 6.7 % (2.0-12.0); NEUTROPHILS # (AUTO) 5.4 /CMM (1.8-8.9); NEUTROPHILS % (AUTO) 83.3 % (43.0-81.0); PLATELET COUNT (AUTO) 147 /CMM (150-450); RED BLOOD CELL COUNT(AUTO) 3.58 MIL/uL (4.5-6.0); WHITE BLOOD COUNT (AUTO) 6.5 K/uL (4.3-11.0)
[2016-11-03 12:00] VITALS: BP 114/58
[2016-11-03] MEDS: DIGOXIN 0.125 MG TABLET GT SCH (12:20)
[2016-11-03] MEDS ORDERED: ALBUTEROL HALF STRENGTH 1.25 MG/3 ML VIAL.NEB NEB PRN (13:30)
[2016-11-03 16:00] VITALS: BP 118/61
[2016-11-03] MEDS: VANCOMYCIN 0.75 GM in IV D5W 250 ML IV SCH ×2 (16:40→23:35)
[2016-11-03 17:17] LABS: ABG BASE EXCESS 13.4 mmol/L; ABG HCO3 38.9 mmol/L; ABG PCO2 54.7 mmHg (35.0-45.0); ABG PO2 75.3 mmHg (75.0-100.0); ABG TOTAL HEMOGLOBIN 10.4 G/dL (13.5-18.0); ALLEN TEST Pass; AaDO2 110.7 mmHg; O2Hb 92.7 % (94.0-97.0)
[2016-11-03 20:00] VITALS: BP 110/51
[2016-11-03] MEDS: ACETAMINOPHEN 325 MG TABLET PO PRN (20:02)
[2016-11-03] MEDS: FIBERSOURCE HN 1,000 ML BOTTLE GT SCH (20:53)
[2016-11-03] MEDS: ENOXAPARIN SODIUM 40 MG/0.4 ML DISP.SYRIN SQ SCH (20:54)
[2016-11-04] VITALS: BP 104/56
[2016-11-04] MEDS: METOCLOPRAMIDE HCL 10 MG/10 ML UDC GT SCH ×3 (02:31→14:30)
[2016-11-04 04:00] VITALS: BP 124/63
[2016-11-04] MEDS: PIPERACILLIN /TAZOBACTAM 3.375 G in IV D5W 50 ML IV SCH ×4 (05:27→23:33)
[2016-11-04 06:47] LABS: DIFF TOTAL % 100 %; EOSINOPHILS % (AUTO) 0.3 % (0.0-6.0); HEMATOCRIT 28 % (39-51); HEMOGLOBIN 8.9 g/dL (13.5-17.5); LYMPHOCYTES # (AUTO) 0.6 /CMM (0.8-4.8); LYMPHOCYTES % (AUTO) 5.2 % (20.0-44.0); MEAN CORPUSCULAR HEMOGLOBIN 24 PG (26.0-33.0); MEAN CORPUSCULAR HGB CONC 32 g/dl (31.0-36.0); MEAN CORPUSCULAR VOLUME 75 fL (80-96); MONOCYTES # (AUTO) 0.7 /CMM (0.1-1.30); MONOCYTES % (AUTO) 5.8 % (2.0-12.0); NEUTROPHILS % (AUTO) 88.7 % (43.0-81.0); PLATELET COUNT (AUTO) 145 /CMM (150-450); RED BLOOD CELL COUNT(AUTO) 3.76 MIL/uL (4.5-6.0); WHITE BLOOD COUNT (AUTO) 11.3 K/uL (4.3-11.0)
[2016-11-04 07:37] LABS: CALCIUM, SERUM 8.1 mg/dL (8.5-10.1); CREATININE 0.5 mg/dL (0.6-1.3); PHOSPHORUS 1.3 mg/dL (2.5-4.9); POTASSIUM 3.5 mmol/L (3.5-5.1)
[2016-11-04 08:00] VITALS: BP 118/58
[2016-11-04] MEDS: VANCOMYCIN 0.75 GM in IV D5W 250 ML IV SCH ×2 (08:09→15:39)
[2016-11-04] MEDS: ASCORBIC ACID 500 MG TABLET GT SCH (08:10)
[2016-11-04] MEDS: CARBIDOPA/LEVODOPA 25/100 MG 1 UDTAB GT SCH ×3 (08:10→16:15)
[2016-11-04] MEDS: BETHANECHOL CHLORIDE (25 MG) 25 MG TABLET GT SCH ×3 (08:10→16:15)
[2016-11-04] MEDS: BENZTROPINE MESYLATE (1 MG) 1 MG TABLET GT SCH ×3 (08:10→16:15)
[2016-11-04] MEDS: MULTIVITAMINS,THERAPEUTIC 1 UDTAB TABLET GT SCH (08:10)
[2016-11-04] MEDS: VALPROIC ACID 250 MG/5 ML UDC GT SCH ×2 (08:10→20:48)
[2016-11-04] MEDS: ACETAMINOPHEN 325 MG TABLET PO PRN (08:10)
[2016-11-04] MEDS: PANTOPRAZOLE 40 MG/PACK PACK GT SCH (08:10)
[2016-11-04] MEDS: LEVOTHYROXINE SODIUM 112 MCG TABLET GT SCH (08:10)
[2016-11-04] MEDS: HYDROGEL DRESSING 90 GM TUBE TP SCH (08:11)
[2016-11-04] MEDS: AMIODARONE HCL 200 MG TABLET GT SCH (08:11)
[2016-11-04 12:00] VITALS: BP 106/47
[2016-11-04] MEDS: FIBERSOURCE HN 1,000 ML BOTTLE GT SCH (12:28)
[2016-11-04] MEDS: DIGOXIN 0.125 MG TABLET GT SCH (12:29)
[2016-11-04] MEDS ORDERED: SECONDARY IV SET 1 EA INFUS.SET MC ONE (13:14)
[2016-11-04] MEDS: Magnesium 1GM/D5W 100ML PREMIX 100 ML IV SCH ×2 (13:18→14:25)
[2016-11-04] MEDS ORDERED: TIGECYCLINE 100 MG in IV D5W 100 ML IV SCH (14:30)
[2016-11-04] MEDS: OSELTAMIVIR PHOSPHATE 75 MG CAPSULE PO SCH ×2 (15:39→16:16)
[2016-11-04 16:00] VITALS: BP 114/44
[2016-11-04] MEDS: MUPIROCIN OINT 2% 22 GM TUBE SCH ×2 (16:15→20:50)
[2016-11-04] MEDS ORDERED: NEUTRA PHOS 1 POWD.PACKET GT ONE (18:00)
[2016-11-04 20:00] VITALS: BP 118/49
[2016-11-04] MEDS ORDERED: IV NS 0.9% 250 ML IV ONE (20:42)
[2016-11-04] MEDS: ACETYLCYSTEINE 10% 3,000 MG/30 ML VIAL PO SCH (20:47)
[2016-11-04] MEDS: COLISTIMETHATE SODIUM 100 MG in IV NS 0.9% 50 ML IV SCH (20:48)
[2016-11-04] MEDS: LINEZOLID RTU BAG 600 MG in PREMIX 1 EA IV SCH (20:48)
[2016-11-04] MEDS: ENOXAPARIN SODIUM 40 MG/0.4 ML DISP.SYRIN SQ SCH (20:48)
[2016-11-05] VITALS: BP 109/62
[2016-11-05] MEDS: FIBERSOURCE HN 1,000 ML BOTTLE GT SCH ×2 (02:46→21:35)
[2016-11-05 04:00] VITALS: BP 111/55
[2016-11-05] MEDS: PIPERACILLIN /TAZOBACTAM 3.375 G in IV D5W 50 ML IV SCH ×3 (05:09→17:24)
[2016-11-05] MEDS ORDERED: SECONDARY IV SET 1 EA INFUS.SET MC ONE (07:46)
[2016-11-05 07:57] LABS: CALCIUM, SERUM 8.1 mg/dL (8.5-10.1); CREATININE 0.4 mg/dL (0.6-1.3); DIFF TOTAL % 100 %; EOSINOPHILS % (AUTO) 0.1 % (0.0-6.0); HEMATOCRIT 27 % (39-51); HEMOGLOBIN 8.4 g/dL (13.5-17.5); LYMPHOCYTES # (AUTO) 0.9 /CMM (0.8-4.8); LYMPHOCYTES % (AUTO) 8.4 % (20.0-44.0); MEAN CORPUSCULAR HEMOGLOBIN 24 PG (26.0-33.0); MEAN CORPUSCULAR HGB CONC 32 g/dl (31.0-36.0); MEAN CORPUSCULAR VOLUME 75 fL (80-96); MONOCYTES # (AUTO) 0.5 /CMM (0.1-1.30); MONOCYTES % (AUTO) 4.8 % (2.0-12.0); NEUTROPHILS # (AUTO) 9.8 /CMM (1.8-8.9); NEUTROPHILS % (AUTO) 86.7 % (43.0-81.0); PHOSPHORUS 1.3 mg/dL (2.5-4.9); PLATELET COUNT (AUTO) 153 /CMM (150-450); POTASSIUM 3.4 mmol/L (3.5-5.1); RED BLOOD CELL COUNT(AUTO) 3.55 MIL/uL (4.5-6.0); WHITE BLOOD COUNT (AUTO) 11.3 K/uL (4.3-11.0)
[2016-11-05] MEDS: COLISTIMETHATE SODIUM 100 MG in IV NS 0.9% 50 ML IV SCH ×2 (07:58→21:35)
[2016-11-05 08:00] VITALS: BP 114/59
[2016-11-05] MEDS: OSELTAMIVIR PHOSPHATE 75 MG CAPSULE PO SCH ×2 (08:00→17:24)
[2016-11-05] MEDS: LEVOTHYROXINE SODIUM 112 MCG TABLET GT SCH (08:00)
[2016-11-05] MEDS: PANTOPRAZOLE 40 MG/PACK PACK GT SCH (08:00)
[2016-11-05] MEDS: ASCORBIC ACID 500 MG TABLET GT SCH (08:00)
[2016-11-05] MEDS: BETHANECHOL CHLORIDE (25 MG) 25 MG TABLET GT SCH ×3 (08:01→17:24)
[2016-11-05] MEDS: MULTIVITAMINS,THERAPEUTIC 1 UDTAB TABLET GT SCH (08:01)
[2016-11-05] MEDS: BENZTROPINE MESYLATE (1 MG) 1 MG TABLET GT SCH ×3 (08:01→17:24)
[2016-11-05] MEDS: ACETYLCYSTEINE 10% 3,000 MG/30 ML VIAL PO SCH ×2 (08:01→17:24)
[2016-11-05] MEDS: CARBIDOPA/LEVODOPA 25/100 MG 1 UDTAB GT SCH ×3 (08:01→17:24)
[2016-11-05] MEDS: VALPROIC ACID 250 MG/5 ML UDC GT SCH ×2 (08:01→21:36)
[2016-11-05] MEDS: HYDROGEL DRESSING 90 GM TUBE TP SCH (08:02)
[2016-11-05] MEDS: MUPIROCIN OINT 2% 22 GM TUBE SCH ×2 (08:02→21:37)
[2016-11-05] MEDS: AMIODARONE HCL 200 MG TABLET GT SCH (08:09)
[2016-11-05 08:40] LABS: THYROID STIMULATING HORMONE 2.083 uIU/mL (0.358-3.74)
[2016-11-05] MEDS: LINEZOLID RTU BAG 600 MG in PREMIX 1 EA IV SCH ×2 (09:37→21:36)
[2016-11-05] MEDS: Magnesium 1GM/D5W 100ML PREMIX 100 ML IV SCH ×2 (11:07→12:21)
[2016-11-05] MEDS ORDERED: POTASSIUM CHLORIDE 20 MEQ POWDER PACKET GT SCH (11:30)
[2016-11-05] MEDS ORDERED: NEUTRA PHOS 1 POWD.PACKET GT ONE (11:30)
[2016-11-05 12:00] VITALS: BP 111/60
[2016-11-05] MEDS: DIGOXIN 0.125 MG TABLET GT SCH (12:21)
[2016-11-05] MEDS ORDERED: CT SWABBABLE VALVE TRANS SET 1 EA INFUS.SET MC ONE (14:05)
[2016-11-05] MEDS ORDERED: IV NS 0.9% 250 ML IV ONE (14:05)
[2016-11-05] MEDS ORDERED: IOHEXOL-300 100 ML VIAL IV ONE (14:05)
[2016-11-05 16:00] VITALS: BP 102/60
[2016-11-05] MEDS ORDERED: IV SET PRIMARY PUMP SET 1 EA INFUS.SET MC ONE (16:17)
[2016-11-05 20:00] VITALS: BP 100/54
[2016-11-05] MEDS: ENOXAPARIN SODIUM 40 MG/0.4 ML DISP.SYRIN SQ SCH (21:49)
[2016-11-06] VITALS: BP 113/56
[2016-11-06] MEDS ORDERED: IV NS 0.9% 250 ML IV ONE (00:04)
[2016-11-06] MEDS: PIPERACILLIN /TAZOBACTAM 3.375 G in IV D5W 50 ML IV SCH ×4 (00:34→17:04)
[2016-11-06 04:00] VITALS: BP 121/52
[2016-11-06 06:45] LABS: BASOPHILS % (AUTO) 0.1 % (0.0-2.0); DIFF TOTAL % 100 %; EOSINOPHILS # (AUTO) 0.1 /CMM (0.0-0.7); HEMATOCRIT 28 % (39-51); HEMOGLOBIN 8.6 g/dL (13.5-17.5); LYMPHOCYTES # (AUTO) 0.9 /CMM (0.8-4.8); LYMPHOCYTES % (AUTO) 12.3 % (20.0-44.0); MEAN CORPUSCULAR HEMOGLOBIN 23 PG (26.0-33.0); MEAN CORPUSCULAR HGB CONC 31 g/dl (31.0-36.0); MEAN CORPUSCULAR VOLUME 75 fL (80-96); MONOCYTES # (AUTO) 0.3 /CMM (0.1-1.30); MONOCYTES % (AUTO) 3.6 % (2.0-12.0); NEUTROPHILS # (AUTO) 6.4 /CMM (1.8-8.9); PLATELET COUNT (AUTO) 164 /CMM (150-450); RED BLOOD CELL COUNT(AUTO) 3.68 MIL/uL (4.5-6.0); WHITE BLOOD COUNT (AUTO) 7.7 K/uL (4.3-11.0)
[2016-11-06 07:25] LABS: CALCIUM, SERUM 8.2 mg/dL (8.5-10.1); CREATININE 0.5 mg/dL (0.6-1.3); PHOSPHORUS 2.1 mg/dL (2.5-4.9); POTASSIUM 3.5 mmol/L (3.5-5.1)
[2016-11-06 08:00] VITALS: BP 105/71
[2016-11-06] MEDS: COLISTIMETHATE SODIUM 100 MG in IV NS 0.9% 50 ML IV SCH ×2 (08:24→22:04)
[2016-11-06] MEDS: VALPROIC ACID 250 MG/5 ML UDC GT SCH ×2 (08:26→22:04)
[2016-11-06] MEDS: PANTOPRAZOLE 40 MG/PACK PACK GT SCH (08:26)
[2016-11-06] MEDS: MULTIVITAMINS,THERAPEUTIC 1 UDTAB TABLET GT SCH (08:26)
[2016-11-06] MEDS: BENZTROPINE MESYLATE (1 MG) 1 MG TABLET GT SCH ×3 (08:26→16:00)
[2016-11-06] MEDS: LEVOTHYROXINE SODIUM 112 MCG TABLET GT SCH (08:26)
[2016-11-06] MEDS: ASCORBIC ACID 500 MG TABLET GT SCH (08:27)
[2016-11-06] MEDS: BETHANECHOL CHLORIDE (25 MG) 25 MG TABLET GT SCH ×3 (08:27→16:00)
[2016-11-06] MEDS: AMIODARONE HCL 200 MG TABLET GT SCH (08:27)
[2016-11-06] MEDS: CARBIDOPA/LEVODOPA 25/100 MG 1 UDTAB GT SCH ×3 (08:27→16:00)
[2016-11-06] MEDS: LINEZOLID RTU BAG 600 MG in PREMIX 1 EA IV SCH (08:28)
[2016-11-06] MEDS: ACETYLCYSTEINE 10% 3,000 MG/30 ML VIAL PO SCH ×2 (08:28→17:04)
[2016-11-06] MEDS: HYDROGEL DRESSING 90 GM TUBE TP SCH (08:29)
[2016-11-06] MEDS: MUPIROCIN OINT 2% 22 GM TUBE SCH ×2 (08:29→22:05)
[2016-11-06 12:00] VITALS: BP 126/66
[2016-11-06] MEDS: DIGOXIN 0.125 MG TABLET GT SCH (12:15)
[2016-11-06] MEDS: Magnesium 1GM/D5W 100ML PREMIX 100 ML IV SCH ×2 (13:49→15:00)
[2016-11-06] MEDS ORDERED: SECONDARY IV SET 1 EA INFUS.SET MC ONE (14:59)
[2016-11-06] MEDS: SOD FERRIC GLUC 125 MG in IV NS 0.9% 100 ML IV SCH (15:00)
[2016-11-06] MEDS: FIBERSOURCE HN 1,000 ML BOTTLE GT SCH (15:53)
[2016-11-06 16:00] VITALS: BP 110/60
[2016-11-06] MEDS ORDERED: NEUTRA PHOS 1 POWD.PACKET GT ONE (17:30)
[2016-11-06 20:00] VITALS: BP 116/60
[2016-11-06] MEDS: LINEZOLID 600 MG TABLET GT SCH (22:04)
[2016-11-06] MEDS: ENOXAPARIN SODIUM 40 MG/0.4 ML DISP.SYRIN SQ SCH (22:23)
[2016-11-07] VITALS: BP 113/58
[2016-11-07] MEDS: PIPERACILLIN /TAZOBACTAM 3.375 G in IV D5W 50 ML IV SCH ×2 (00:35→05:30)
[2016-11-07 04:00] VITALS: BP 119/70
[2016-11-07 06:37] LABS: BASOPHILS % (AUTO) 0.3 % (0.0-2.0); DIFF TOTAL % 100 %; EOSINOPHILS # (AUTO) 0.4 /CMM (0.0-0.7); EOSINOPHILS % (AUTO) 5.2 % (0.0-6.0); HEMATOCRIT 29 % (39-51); HEMOGLOBIN 9.1 g/dL (13.5-17.5); LYMPHOCYTES % (AUTO) 12.6 % (20.0-44.0); MEAN CORPUSCULAR HEMOGLOBIN 24 PG (26.0-33.0); MEAN CORPUSCULAR HGB CONC 32 g/dl (31.0-36.0); MEAN CORPUSCULAR VOLUME 75 fL (80-96); MONOCYTES # (AUTO) 0.6 /CMM (0.1-1.30); MONOCYTES % (AUTO) 7.1 % (2.0-12.0); NEUTROPHILS % (AUTO) 74.8 % (43.0-81.0); PLATELET COUNT (AUTO) 184 /CMM (150-450); RED BLOOD CELL COUNT(AUTO) 3.86 MIL/uL (4.5-6.0)
[2016-11-07 06:55] LABS: CALCIUM, SERUM 8.4 mg/dL (8.5-10.1); CREATININE 0.5 mg/dL (0.6-1.3); PHOSPHORUS 2.2 mg/dL (2.5-4.9)
[2016-11-07 08:00] VITALS: BP 116/67
[2016-11-07 08:18] VITALS: BP 116/67
[2016-11-07] MEDS: COLISTIMETHATE SODIUM 100 MG in IV NS 0.9% 50 ML IV SCH ×2 (08:56→20:53)
[2016-11-07] MEDS: VALPROIC ACID 250 MG/5 ML UDC GT SCH ×2 (08:57→20:53)
[2016-11-07] MEDS: PANTOPRAZOLE 40 MG/PACK PACK GT SCH (08:57)
[2016-11-07] MEDS: AMIODARONE HCL 200 MG TABLET GT SCH (08:58)
[2016-11-07] MEDS: LEVOTHYROXINE SODIUM 112 MCG TABLET GT SCH (08:58)
[2016-11-07] MEDS: CARBIDOPA/LEVODOPA 25/100 MG 1 UDTAB GT SCH ×3 (08:59→16:47)
[2016-11-07] MEDS: ASCORBIC ACID 500 MG TABLET GT SCH (08:59)
[2016-11-07] MEDS: BETHANECHOL CHLORIDE (25 MG) 25 MG TABLET GT SCH ×3 (08:59→16:47)
[2016-11-07] MEDS: BENZTROPINE MESYLATE (1 MG) 1 MG TABLET GT SCH ×3 (08:59→16:47)
[2016-11-07] MEDS: MULTIVITAMINS,THERAPEUTIC 1 UDTAB TABLET GT SCH (09:00)
[2016-11-07] MEDS: HYDROGEL DRESSING 90 GM TUBE TP SCH (09:00)
[2016-11-07] MEDS: LINEZOLID 600 MG TABLET GT SCH ×2 (09:00→20:53)
[2016-11-07] MEDS: MUPIROCIN OINT 2% 22 GM TUBE SCH ×2 (09:01→20:55)
[2016-11-07] MEDS ORDERED: Magnesium 1GM/D5W 100ML PREMIX PIGGYBACK IV ONE (13:00)
[2016-11-07] MEDS ORDERED: NEUTRA PHOS 1 POWD.PACKET PO ONE (13:00)
[2016-11-07] MEDS ORDERED: SECONDARY IV SET 1 EA INFUS.SET MC ONE ×2 (13:12→14:34)
[2016-11-07] MEDS: DIGOXIN 0.125 MG TABLET GT SCH (13:20)
[2016-11-07] MEDS: Magnesium 1GM/D5W 100ML PREMIX 100 ML IV SCH ×2 (13:30→15:50)
[2016-11-07 14:16] LABS: *SPE ALBUMIN 2.1 g/dL (2.9-4.4)
[2016-11-07] MEDS: SOD FERRIC GLUC 125 MG in IV NS 0.9% 100 ML IV SCH (14:50)
[2016-11-07 16:00] VITALS: BP 103/59
[2016-11-07] MEDS: FIBERSOURCE HN 1,000 ML BOTTLE GT SCH (16:48)
[2016-11-07 20:00] VITALS: BP 107/61
[2016-11-07] MEDS: ENOXAPARIN SODIUM 40 MG/0.4 ML DISP.SYRIN SQ SCH (20:52)
[2016-11-08 04:00] VITALS: BP 118/53
[2016-11-08 04:24] VITALS: BP 118/53
[2016-11-08] MEDS: FIBERSOURCE HN 1,000 ML BOTTLE GT SCH ×2 (05:07→21:30)
[2016-11-08] MEDS: LEVOTHYROXINE SODIUM 112 MCG TABLET GT SCH (06:21)
[2016-11-08 07:15] LABS: CALCIUM, SERUM 8.1 mg/dL (8.5-10.1); CREATININE 0.5 mg/dL (0.6-1.3); POTASSIUM 4.3 mmol/L (3.5-5.1)
[2016-11-08 08:00] VITALS: BP 117/59
[2016-11-08] MEDS: COLISTIMETHATE SODIUM 100 MG in IV NS 0.9% 50 ML IV SCH ×2 (08:54→21:31)
[2016-11-08] MEDS: PANTOPRAZOLE 40 MG/PACK PACK GT SCH (08:55)
[2016-11-08] MEDS: VALPROIC ACID 250 MG/5 ML UDC GT SCH ×2 (08:55→21:30)
[2016-11-08] MEDS: MULTIVITAMINS,THERAPEUTIC 1 UDTAB TABLET GT SCH (08:55)
[2016-11-08] MEDS: AMIODARONE HCL 200 MG TABLET GT SCH (08:56)
[2016-11-08] MEDS: CARBIDOPA/LEVODOPA 25/100 MG 1 UDTAB GT SCH ×3 (08:56→16:55)
[2016-11-08] MEDS: LINEZOLID 600 MG TABLET GT SCH (08:56)
[2016-11-08] MEDS: BENZTROPINE MESYLATE (1 MG) 1 MG TABLET GT SCH ×3 (08:56→16:55)
[2016-11-08] MEDS: ASCORBIC ACID 500 MG TABLET GT SCH (08:56)
[2016-11-08] MEDS: BETHANECHOL CHLORIDE (25 MG) 25 MG TABLET GT SCH ×3 (08:57→16:55)
[2016-11-08] MEDS: MUPIROCIN OINT 2% 22 GM TUBE SCH ×2 (08:57→21:32)
[2016-11-08] MEDS: HYDROGEL DRESSING 90 GM TUBE TP SCH (08:57)
[2016-11-08 09:14] LABS: BASOPHILS % (AUTO) 0.1 % (0.0-2.0); DIFF TOTAL % 100 %; EOSINOPHILS # (AUTO) 0.4 /CMM (0.0-0.7); EOSINOPHILS % (AUTO) 5.1 % (0.0-6.0); HEMATOCRIT 26 % (39-51); HEMOGLOBIN 8.3 g/dL (13.5-17.5); LYMPHOCYTES # (AUTO) 1.5 /CMM (0.8-4.8); LYMPHOCYTES % (AUTO) 20.5 % (20.0-44.0); MEAN CORPUSCULAR HEMOGLOBIN 23 PG (26.0-33.0); MEAN CORPUSCULAR HGB CONC 32 g/dl (31.0-36.0); MEAN CORPUSCULAR VOLUME 74 fL (80-96); MONOCYTES # (AUTO) 0.8 /CMM (0.1-1.30); MONOCYTES % (AUTO) 10.4 % (2.0-12.0); NEUTROPHILS # (AUTO) 4.7 /CMM (1.8-8.9); NEUTROPHILS % (AUTO) 63.9 % (43.0-81.0); PLATELET COUNT (AUTO) 183 /CMM (150-450); RED BLOOD CELL COUNT(AUTO) 3.54 MIL/uL (4.5-6.0); WHITE BLOOD COUNT (AUTO) 7.4 K/uL (4.3-11.0)
[2016-11-08] MEDS ORDERED: K PHOS NEUTRAL 250 MG TABLET PO ONE (10:30)
[2016-11-08] MEDS: DIGOXIN 0.125 MG TABLET GT SCH (12:45)
[2016-11-08] MEDS: SOD FERRIC GLUC 125 MG in IV NS 0.9% 100 ML IV SCH (13:55)
[2016-11-08 16:00] VITALS: BP_SYST 117; BP_SYST 118; BP_DIAS 59; BP_DIAS 60
[2016-11-08 20:00] VITALS: BP 115/68
[2016-11-08] MEDS: ENOXAPARIN SODIUM 40 MG/0.4 ML DISP.SYRIN SQ SCH (21:31)
[2016-11-08] MEDS ORDERED: IV NS 0.9% 250 ML IV ONE (21:33)
[2016-11-08] MEDS ORDERED: IV SET PRIMARY PUMP SET 1 EA INFUS.SET MC ONE (21:39)
[2016-11-09 04:00] VITALS: BP 111/67
[2016-11-09 06:27] LABS: CALCIUM, SERUM 8.3 mg/dL (8.5-10.1); CREATININE 0.6 mg/dL (0.6-1.3); POTASSIUM 4.4 mmol/L (3.5-5.1)
[2016-11-09 08:00] VITALS: BP 126/64
[2016-11-09] MEDS: LEVOTHYROXINE SODIUM 112 MCG TABLET GT SCH (08:43)
[2016-11-09] MEDS: BETHANECHOL CHLORIDE (25 MG) 25 MG TABLET GT SCH ×3 (08:43→17:18)
[2016-11-09] MEDS: ASCORBIC ACID 500 MG TABLET GT SCH (08:43)
[2016-11-09] MEDS: VALPROIC ACID 250 MG/5 ML UDC GT SCH ×2 (08:43→20:04)
[2016-11-09] MEDS: CARBIDOPA/LEVODOPA 25/100 MG 1 UDTAB GT SCH ×3 (08:43→17:18)
[2016-11-09] MEDS: COLISTIMETHATE SODIUM 100 MG in IV NS 0.9% 50 ML IV SCH ×2 (08:43→19:53)
[2016-11-09] MEDS: MULTIVITAMINS,THERAPEUTIC 1 UDTAB TABLET GT SCH (08:43)
[2016-11-09] MEDS: BENZTROPINE MESYLATE (1 MG) 1 MG TABLET GT SCH ×3 (08:43→17:18)
[2016-11-09] MEDS: PANTOPRAZOLE 40 MG/PACK PACK GT SCH (08:43)
[2016-11-09] MEDS: AMIODARONE HCL 200 MG TABLET GT SCH (08:44)
[2016-11-09] MEDS: HYDROGEL DRESSING 90 GM TUBE TP SCH (08:45)
[2016-11-09] MEDS: MUPIROCIN OINT 2% 22 GM TUBE SCH ×2 (08:45→20:06)
[2016-11-09] MEDS ORDERED: SECONDARY IV SET 1 EA INFUS.SET MC ONE ×2 (10:08→19:52)
[2016-11-09] MEDS: Magnesium 1GM/D5W 100ML PREMIX 100 ML IV SCH ×4 (10:12→15:08)
[2016-11-09 12:00] VITALS: BP 121/64
[2016-11-09] MEDS: FIBERSOURCE HN 1,000 ML BOTTLE GT SCH (13:38)
[2016-11-09] MEDS: DIGOXIN 0.125 MG TABLET GT SCH (14:03)
[2016-11-09 16:00] VITALS: BP 123/66
[2016-11-09] MEDS: SOD FERRIC GLUC 125 MG in IV NS 0.9% 100 ML IV SCH (16:56)
[2016-11-09 20:00] VITALS: BP 121/59
[2016-11-09] MEDS: ENOXAPARIN SODIUM 40 MG/0.4 ML DISP.SYRIN SQ SCH (20:05)
== END 2016-11-09 21:05 | DRG 871 ==
LOC: ER 19:25 → TELE1 22:11 → TELE-TD 11-03 02:28 → TELE1 11-05 12:01 → MEDSG1 11-07 16:14
PROVIDERS: ADMIT Internal Medicine; ATTEND Internal Medicine
PROC: 02HV33Z Insertion of Infusion Device into Superior Vena Cava, Percutaneous Approach (ICD-10-PCS; principal; 2016-11-02)
PROC: B548ZZA Ultrasonography of Superior Vena Cava, Guidance (ICD-10-PCS; 2016-11-02)
DX: A41.9 Sepsis, unspecified organism (principal); J18.9 Pneumonia, unspecified organism; E43 Unspecified severe protein-calorie malnutrition; J96.22 Acute and chronic respiratory failure with hypercapnia; J96.21 Acute and chronic respiratory failure with hypoxia; J18.0 Bronchopneumonia, unspecified organism; R53.2 Functional quadriplegia; E87.1 Hypo-osmolality and hyponatremia; J44.0 Chronic obstructive pulmonary disease with (acute) lower respiratory infection; J90 Pleural effusion, not elsewhere classified; J98.11 Atelectasis; Z99.11 Dependence on respirator [ventilator] status; Z68.1 Body mass index [BMI] 19.9 or less, adult; C34.90 Malignant neoplasm of unspecified part of unspecified bronchus or lung; R65.20 Severe sepsis without septic shock; Z93.0 Tracheostomy status; I11.9 Hypertensive heart disease without heart failure; G20 Parkinson's disease; E03.9 Hypothyroidism, unspecified; G40.909 Epilepsy, unspecified, not intractable, without status epilepticus; I48.0 Paroxysmal atrial fibrillation; F03.90 Unspecified dementia, unspecified severity, without behavioral disturbance, psychotic disturbance, mood disturbance, and anxiety; D50.9 Iron deficiency anemia, unspecified; K21.9 Gastro-esophageal reflux disease without esophagitis; B96.5 Pseudomonas (aeruginosa) (mallei) (pseudomallei) as the cause of diseases classified elsewhere; D47.2 Monoclonal gammopathy; D69.6 Thrombocytopenia, unspecified; E78.5 Hyperlipidemia, unspecified; E83.39 Other disorders of phosphorus metabolism; E83.42 Hypomagnesemia; E87.8 Other disorders of electrolyte and fluid balance, not elsewhere classified; E87.6 Hypokalemia; F31.9 Bipolar disorder, unspecified; M41.9 Scoliosis, unspecified; R13.10 Dysphagia, unspecified; Y95 Nosocomial condition; Z22.322 Carrier or suspected carrier of Methicillin resistant Staphylococcus aureus; Z86.73 Personal history of transient ischemic attack (TIA), and cerebral infarction without residual deficits; Z87.01 Personal history of pneumonia (recurrent); Z93.1 Gastrostomy status
CPT/HCPCS: 31720; 36415; 36569; 36600; 71010-TC; 71250-TC; 71260-TC; 80048-TC; 80076-TC; 80202-TC; 81000-TC; 82232; 82272-TC; 82728-TC; 82746; 82962-TC; 83540-TC; 83605-TC; 83615-TC; 83735-TC; 84100-TC; 84155; 84165; 84439-TC; 84443-TC; 84484-TC; 85025-TC; 85045-TC; 85730-TC; 87040-TC; 87070-TC; 87081-TC; 87086-TC; 87186-TC; 87400; 93307-TC; 94640-TC; 94760-TC; 94799-TC; 99082-TC; A4216; A4606; A6248; J0770; J1650; J1956; J2020; J2543; J2916; J3243; J3370; J3475; J7030; J7050; J7060; J8597; Q9967; Z7610

== ENCOUNTER 2016-11-11 02:56 | Emergency (ER) | payer MEDICARE, MEDICAID ==
[~2016-11-11] VITALS: Ht 165.1 cm; Wt 63.5 kg
[~2016-11-11 02:56] MED LIST changes: -LEVO500T90 GT; -METO5SOL GT
[2016-11-11 03:00] VITALS: BP 154/81
[2016-11-11 05:25] VITALS: BP 113/70
== END 2016-11-11 05:00 | disposition home or self-care (01) ==
LOC: ER 02:57
DX: T17.890A Other foreign object in other parts of respiratory tract causing asphyxiation, initial encounter (principal); I48.91 Unspecified atrial fibrillation; I10 Essential (primary) hypertension; Z88.8 Allergy status to other drugs, medicaments and biological substances; Z88.1 Allergy status to other antibiotic agents; Z88.6 Allergy status to analgesic agent
CPT/HCPCS: 99283; A4606; Z7610

== ENCOUNTER 2016-11-13 23:05 | Emergency (ER) | payer MEDICARE, MEDICAID ==
[~2016-11-13] VITALS: Ht 165.1 cm; Wt 68.0 kg
[2016-11-13] MEDS ORDERED: LIDOCAINE VISCOUS 2% UD 15 ML UDC ONE (23:09)
[2016-11-13] MEDS ORDERED: DIATR MEGLU/DIATRIZOATE SODIUM 120 ML BOTTLE (GASTROGRAPHIN) ONE (23:19)
[2016-11-13 23:25] VITALS: BP 106/67
[2016-11-13] MEDS ORDERED: LIDOCAINE VISCOUS 2% UD 15 ML UDC MM ONE (23:30)
[2016-11-14 00:59] VITALS: BP 106/67
[2016-11-14 03:11] VITALS: BP 146/82
[2016-11-14 05:17] VITALS: BP 125/58
[2016-11-14] MEDS ORDERED: FIBERSOURCE HN 1,000 ML BOTTLE GT PRN (05:30)
[2016-11-14] MEDS ORDERED: NUTRITIONAL SUPPLEMENT/FIBER 250 ML CAN ONE (05:39)
[2016-11-14 07:22] VITALS: BP 125/58
[2016-11-14] MEDS ORDERED: NUTRITIONAL SUPPLEMENT/FIBER 250 ML CAN GT ONE (09:00)
== END 2016-11-14 07:23 ==
LOC: ER 23:07
DX: K94.23 Gastrostomy malfunction (principal); Z99.11 Dependence on respirator [ventilator] status; I10 Essential (primary) hypertension; I48.91 Unspecified atrial fibrillation; Z88.1 Allergy status to other antibiotic agents; Z88.8 Allergy status to other drugs, medicaments and biological substances; R73.09 Other abnormal glucose
CPT/HCPCS: 43760; 74000; 82962 ×2; 99284; A4606; Q9963; Z7610

== ENCOUNTER 2016-11-15 12:52 | Emergency (ER) | payer MEDICARE, MEDICAID ==
[~2016-11-15] VITALS: Ht 180.3 cm; Wt 95.3 kg
[2016-11-15] MEDS ORDERED: DIATR MEGLU/DIATRIZOATE SODIUM 120 ML BOTTLE (GASTROGRAPHIN) ONE (13:15)
[2016-11-15 14:53] VITALS: BP 126/69
== END 2016-11-15 14:54 ==
LOC: ER 12:54
DX: K94.23 Gastrostomy malfunction (principal); I10 Essential (primary) hypertension; I48.91 Unspecified atrial fibrillation; Z88.1 Allergy status to other antibiotic agents; Z88.8 Allergy status to other drugs, medicaments and biological substances
CPT/HCPCS: 74000-TC; A4606; Q9963; Z7610

== ENCOUNTER 2016-11-16 12:42 | Emergency (ER) | payer MEDICARE, MEDICAID ==
[~2016-11-16] VITALS: Ht 177.8 cm; Wt 90.3 kg
[2016-11-16 01:03] VITALS: BP 114/66
[2016-11-16] MEDS ORDERED: DIATR MEGLU/DIATRIZOATE SODIUM 30 ML BOTTLE (GASTROGRAPHIN) ONE (14:26)
[2016-11-16 15:35] VITALS: BP 113/61
== END 2016-11-16 15:36 | disposition home or self-care (01) ==
LOC: ER 12:44
DX: K94.23 Gastrostomy malfunction (principal); I10 Essential (primary) hypertension; I48.91 Unspecified atrial fibrillation; Z88.1 Allergy status to other antibiotic agents; Z88.8 Allergy status to other drugs, medicaments and biological substances
CPT/HCPCS: 74000 ×2; 99284; A4606; Q9963; 94002; Z7610